=== PATIENT | male | born 1995 | race Caucasian/White ===

== ENCOUNTER 2021-05-04 19:25 | Emergency (ER) | payer BC, SELFPAY ==
[2021-05-04 19:31] VITALS: BP 157/84; PULSE 105; RESP 18; TEMP 36.6; O2SAT 96; BMI 22.9
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
[2021-05-04 20:54] VITALS: BP 122/75; PULSE 89; RESP 16; O2SAT 98
== END 2021-05-04 20:55 | disposition home or self-care (01) ==
PROVIDERS: Emergency Provider Physician Assistant
DX: S20.221A Contusion of right back wall of thorax, initial encounter (principal); S20.411A Abrasion of right back wall of thorax, initial encounter; V09.20XA Pedestrian injured in traffic accident involving unspecified motor vehicles, initial encounter
CPT/HCPCS: 71250; 72125; 72128; 99283

== ENCOUNTER → 2021-07-11 13:42 | Outpatient (BNVA) | payer BC, SELFPAY | PROVIDERS: Visit Provider Nurse Practitioner Family | DX: Z20.2 Contact with and (suspected) exposure to infections with a predominantly sexual mode of transmission (principal) | CPT/HCPCS: 87491; 87591 ==